=== PATIENT | female | born 1975 | race African-American/Black ===

== ENCOUNTER 2022-08-28 21:43 | Emergency (ER) | payer OTHER ==
[~2022-08-28] VITALS: Ht 170.2 cm; Wt 108.2 kg
[2022-08-29 01:01] VITALS: BP 154/80
[2022-08-29] MEDS ORDERED: FLEET ENEMA(ADULT) 135 ML PR ONE (01:15)
== END 2022-08-29 01:47 | disposition home or self-care (01) ==
LOC: ER 21:43
DX: K59.00 Constipation, unspecified (principal); I10 Essential (primary) hypertension